=== PATIENT | female | born 1970 | race Asian ===

== ENCOUNTER 2024-10-11 11:34 | Outpatient (CLI) | payer OTHER, SELFPAY ==
--- NOTE | ~2024-10-11 | MR_ITS ---
MRI of the left knee Clinical history: Pain Technique: Coronal proton density and proton density-weighted images, sagittal proton-density and T2 fat-sat images, and axial proton-density fat-saturated images were acquired. Findings: Anterior and posterior cruciate ligaments are intact. Medial collateral ligament and the la teral collateral ligament complex are intact. Popliteus tendon is intact. There is a possible radial tear at the posterior root of the medial meniscus versus severe intrasubst ance degenerative signal in the posterior root and posterior horn. Lateral meniscus intact. There is mild to moderate chondral malacia the medial patellar facet. There is moderate chondromalaci a at the inferior femoral trochlea centrally. There is mild chondral thinning in the lateral compartm ent. There is moderate chondromalacia along the inner margin of the medial femoral condyle. Extensor mechanism is intact. No significant joint effusion. Small Ruiz cyst present. Impression: Severe intrasubstance degenerative signal of the posterior root and posterior horn of the medial meni scus versus possible posterior root tear. [id number] tricompartmental chondromalacia, as detailed above. Small Ruiz's cyst. Reviewed, dictated and finalized at location . [employer] Impression: Severe intrasubstance degenerative signal of the posterior root and posterior h orn of the medial meniscus versus possible posterior root tear. [id number] tricompartmental chondromalacia, as detailed above. Small Ruiz's cyst.
== END 2024-10-11 11:35 | disposition home or self-care (01) ==
PROVIDERS: PCP Orthopaedic Surgery; Visit Provider Orthopaedic Surgery
DX: M71.22 Synovial cyst of popliteal space [Baker], left knee (principal)
CPT/HCPCS: 73721